=== PATIENT | female | born 1985 | race Caucasian/White ===

== ENCOUNTER 2016-12-16 13:14 | Emergency (ER) | payer MEDICAID ==
[2016-12-16] MEDS ORDERED: Sodium Chloride 0.9% 10 ML Syringe FLUSH PRN (13:54)
[2016-12-16] MEDS ORDERED: Ondansetron 4 MG/2 ML SDV IVPUSH ONE (13:56)
[2016-12-16] MEDS ORDERED: Ketorolac 30 MG/ML SDV IVPUSH ONE (13:56)
[2016-12-16] MEDS ORDERED: diphenhydrAMINE 50 MG/ML SDV IVPUSH ONE (13:57)
[2016-12-16] MEDS ORDERED: Lactated Ringers 1,000 ML IV SCH (14:00)
--- NOTE | 2016-12-16 14:00 | EDM.PDOC ---
ED HPI GENERAL MEDICAL PROBLEM - General Chief Complaint: Chest Pain Stated Complaint: CHEST PAIN Time Seen by Provider: 12/16/16 13:49 Source of Information: Reports: Patient, RN Notes Reviewed History Limitations: Reports: No Limitations - History of Present Illness INITIAL COMMENTS - FREE TEXT/NARRATIVE: 31-year-old female presents emergency department today with complaint of headache and chest pain she was sent over by the clinic urgent care for further evaluation. States had chest pain on and off for the last 2 weeks it is intermittent random last anywhere from 1:55 hours she has had a headache for 2 days photophobia nausea no phonophobia she is not short of breath she does smoke family history with myocardial infarction her father in his 50s Left Shoulder Pain Score (Numeric/FACES): 5 - Related Data Allergies Allergy/AdvReac Type Severity Reaction Status Date / Time Iodinated Contrast- Oral and Allergy Severe Anaphylactic Verified 12/16/16 13:28 IV Dye Shock [Iodinated Contrast Media - IV Dye] shellfish derived Allergy Severe Anaphylactic Verified 12/16/16 13:28 Shock codeine Allergy Rash Verified 12/16/16 13:28 doxycycline Allergy Swelling Verified 12/16/16 13:28 Penicillins Allergy Cannot Verified 12/16/16 13:28 Remember Home Meds: Home Meds Ibuprofen [IMW: Ibuprofen] 800 mg PO .TWICE DAILY W MEALS PRN #30 tab 12/16/16 [ Rx] 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: , Other (See Below) Other OB/BYN History: C SECTIONS X 2 Other Musculoskeletal History: R KNEE REPAIR X 2 Hematologic History: Reports: Other (See Below) Other Hematologic History: Factor V Leiden deficiency - Infectious Disease History Infectious Disease History: Reports: Chicken Pox - History Comment History Comment: recent left breast "infection," biopsy taken a few days ago and antibiotics Social & Family History - Family History HEENT: Reports: None OBGYN: Reports: None Musculoskeletal: Reports: None Hematologic: Reports: Bleeding Disorder - Tobacco Use Smoking Status *Q: Current Every Day Smoker Years of Tobacco use: 16 Packs/Tins Daily: 1 Used Tobacco, but Quit: No Second Hand Smoke Exposure: Yes - Caffeine Use Caffeine Use: Reports: Coffee, Energy Drinks, Soda, Tea Other Caffeine Use: 4-5 cups per day - Alcohol Use Days Per Week of Alcohol Use: 1 Number of Drinks Per Day: 3 Total Drinks Per Week: 3 - Recreational Drug Use Recreational Drug Use: No - Living Situation & Occupation Living situation: Reports: ED ROS GENERAL - Review of Systems Review Of Systems: See Below Constitutional: Reports: No Symptoms HEENT: Reports: No Symptoms Respiratory: Denies: Shortness of Breath, Cough, Sputum Cardiovascular: Reports: Chest Pain GI/Abdominal: Reports: Nausea : Reports: No Symptoms Musculoskeletal: Reports: No Symptoms Neurological: Reports: Headache - Physical Exam Exam: See Below Text/Narrative:: General: Female not in any distress, alert and oriented x3 HEENT: head is atraumatic normocephalic, eyes pupils equal round reactive to light, sclera clear no conjunctivitis appreciated. Ears tympanic membranes clear and aggarwal landmarks and light reflex are present bilaterally canals are clear. Nose no septal deviation, nares are clear, no blood present. Mouth mucosa is moist and pink no erythema or exudate noted in soft palate, tongue is midline uvula is midline, dentition is intact. Neck: Supple no thyromegaly no tracheal deviation. Nodes: Cervical nodes subclavicular nodes nontender no palpable lymphadenopathy noted. Lungs: clear to auscultation bilaterally with symmetrical respirations, no adventitious noise appreciated. CV: Regular rate and rhythm S1 and S2 appreciated no murmurs rubs or gallops noted. Abdomen: Soft, nontender, no palpable masses or organomegaly appreciated, no distention no guarding bowel sounds are present, . Neuro: Cranial nerves II through XII grossly intact Skin: Warm and dry, intact Extremities: No lower extremity edema appreciated. Course - Vital Signs Last Recorded V/S: Last Vital Signs Temp 209.8 F H 12/16/16 13:18 Pulse 60 12/16/16 14:45 Resp 16 12/16/16 14:45 BP 105/73 12/16/16 14:45 Pulse Ox 97 12/16/16 14:45 - Orders/Labs/Meds Orders: Active Orders 24 hr Category Date Time Status Cardiac Monitoring [RC] .As Directed Care 12/16/16 13:55 Active EKG Documentation Completion [RC] ASDIRECTED Care 12/16/16 13:56 Active Peripheral IV Care [RC] . DIRECTED Care 12/16/16 13:55 Active Lactated Ringers [Ringers, Lactated] 1,000 ml Med 12/16/16 14:00 Active IV ASDIRECTED Sodium Chloride 0.9% [Saline Flush] Med 12/16/16 13:54 Active 10 ml FLUSH ASDIRECTED PRN Peripheral IV Insertion Adult [OM.PC] Stat Oth 12/16/16 13:54 Ordered EKG 12 Lead [EK] Stat Ther 12/16/16 13:56 Ordered Medication Orders Lactated Ringer's (Ringers, Lactated) 1,000 mls @ 999 mls/hr IV ASDIRECTED STEVEN Last Admin: 12/16/16 14:08 Dose: 999 mls/hr Sodium Chloride (Saline Flush) 10 ml FLUSH ASDIRECTED PRN PRN Reason: Keep Vein Open Last Admin: 12/16/16 14:15 Dose: 10 ml Labs: Laboratory Tests 12/16/16 12/16/16 Range/Units 14:05 14:05 WBC 8.0 (4.5-11.0) K/uL RBC 5.02 (3.30-5.50) M/uL Hgb 15.7 H D (12.0-15.0) g/dL Hct 45.3 (36.0-48.0) % MCV 90 (80-98) fL MCH 31 (27-31) pg MCHC 35 (32-36) % Plt Count 216 (150-400) K/uL Add Manual Diff Yes Neutrophils % (Manual) 50 (36-66) % Lymphocytes % (Manual) 33 (24-44) % Monocytes % (Manual) 8 H (2-6) % Eosinophils % (Manual) 5 H (2-4) % Sodium 139 L (140-148) mmol/L Potassium 4.3 (3.6-5.2) mmol/L Chloride 105 (100-108) mmol/L Carbon Dioxide 26 (21-32) mmol/L Anion Gap 12.3 (5.0-14.0) mmol/L BUN 8 D (7-18) mg/dL Creatinine 0.8 D (0.6-1.0) mg/dL Est Cr Clr Drug Dosing 97.27 mL/min Estimated GFR (MDRD) > 60 (>60) Glucose 90 (74-106) mg/dL Calcium 8.7 (8.5-10.1) mg/dL Total Bilirubin 0.2 (0.2-1.0) mg/dL AST 14 L (15-37) U/L ALT 23 D (12-78) U/L Alkaline Phosphatase 81 (46-116) U/L Troponin I < 0.017 (0.000-0.056) ng/mL Total Protein 7.5 (6.4-8.2) g/dL Albumin 3.9 (3.4-5.0) g/dL Globulin 3.6 H (2.3-3.5) g/dL Albumin/Globulin Ratio 1.1 L (1.2-2.2) Meds: Medications Generic Name Dose Route Start Last Admin Trade Name Freq PRN Reason Stop Dose Admin Lactated Ringer's 1,000 mls @ 999 mls/hr 12/16/16 14:00 12/16/16 14:08 Ringers, Lactated IV 999 mls/hr ASDIRECTED STEVEN Administration Sodium Chloride 10 ml 12/16/16 13:54 12/16/16 14:15 Saline Flush FLUSH 10 ml ASDIRECTED PRN Administration Keep Vein Open Discontinued Medications Generic Name Dose Route Start Last Admin Trade Name Freq PRN Reason Stop Dose Admin Diphenhydramine HCl 25 mg 12/16/16 13:57 12/16/16 14:14 Benadryl IVPUSH 12/16/16 13:58 25 mg ONETIME ONE Administration Ketorolac Tromethamine 30 mg 12/16/16 13:56 12/16/16 14:11 Toradol IVPUSH 12/16/16 13:57 30 mg ONETIME ONE Administration Ondansetron HCl 4 mg 12/16/16 13:56 12/16/16 14:08 Zofran IVPUSH 12/16/16 13:57 4 mg ONETIME ONE Administration Departure - Departure Time of Disposition: 14:56 Disposition: Home, Self-Care 01 Condition: Good Clinical Impression: Migraine Qualifiers: Migraine type: with aura Status migrainosus presence: without status migrainosus Intractability: not intractable Qualified Code(s): G43.109 - Migraine with aura, not intractable, without status migrainosus - Discharge Information Prescriptions: Ibuprofen [IMW: Ibuprofen] 800 mg PO .TWICE DAILY W MEALS PRN #30 tab PRN Reason: Pain Forms: ED Department Discharge Additional Instructions: Continue to use ibuprofen as needed for pain control, Please followup with your primary care provider in 3-5 days if not better, please call return to the emergency department with worsening of symptoms. - My Orders Last 24 Hours: My Active Orders 12/16/16 13:54 Sodium Chloride 0.9% [Saline Flush] 10 ml FLUSH ASDIRECTED PRN Peripheral IV Insertion Adult [OM.PC] Stat 12/16/16 13:55 Cardiac Monitoring [RC] .As Directed Peripheral IV Care [RC] . DIRECTED 12/16/16 13:56 EKG Documentation Completion [RC] ASDIRECTED EKG 12 Lead [EK] Stat 12/16/16 14:00 Lactated Ringers [Ringers, Lactated] 1,000 ml IV ASDIRECTED - Assessment/Plan Last 24 Hours: My Active Orders 12/16/16 13:54 Sodium Chloride 0.9% [Saline Flush] 10 ml FLUSH ASDIRECTED PRN Peripheral IV Insertion Adult [OM.PC] Stat 12/16/16 13:55 Cardiac Monitoring [RC] .As Directed Peripheral IV Care [RC] . DIRECTED 12/16/16 13:56 EKG Documentation Completion [RC] ASDIRECTED EKG 12 Lead [EK] Stat 12/16/16 14:00 Lactated Ringers [Ringers, Lactated] 1,000 ml IV ASDIRECTED Plan: Assessment Acuity = acute Site and laterality = migraine type headaches Etiology = unclear etiology Manifestations = chest pain now resolved Location of injury = Home Lab values = CBC, CMP, troponin all negative EKG demonstrates a sinus rhythm Plan She had good improvement with combination Toradol, IV fluids, Benadryl and Zofran, prescription written for 800 mg ibuprofen follow-up with primary care 3- 5 days for reevaluation Patient was in agreement with the plan all questions were answered, they were instructed to return to the emergency department or call for worsening symptoms. This note was dictated using [employer] voice recognition software please call with any questions.
[2016-12-16 14:46] VITALS: BP 105/73
== END 2016-12-16 15:20 | disposition home or self-care (01) ==
LOC: JP.ED 13:14
DX: G43.109 Migraine with aura, not intractable, without status migrainosus (principal); F17.210 Nicotine dependence, cigarettes, uncomplicated; Z91.041 Radiographic dye allergy status; Z91.013 Allergy to seafood; Z88.5 Allergy status to narcotic agent; Z88.0 Allergy status to penicillin; Z98.890 Other specified postprocedural states
CPT/HCPCS: 36415; 80053; 84484; 85025; 93005; 96361; 96374; 96375; 99285; J1200; J1885; J2405; J7050; J7120

== ENCOUNTER 2018-01-25 14:28 | Emergency (ER) | payer MEDICAID ==
[2018-01-25 15:09] VITALS: BP 138/89
--- NOTE | 2018-01-25 16:44 | EDM.PDOC ---
ED HPI GENERAL MEDICAL PROBLEM - General Chief Complaint: Lower Extremity Injury/Pain Stated Complaint: SWELLING FROM MID-CALF DOWN/ RECENT KNEE SURGURY Time Seen by Provider: 01/25/18 15:25 Source of Information: Reports: Patient History Limitations: Reports: No Limitations - History of Present Illness INITIAL COMMENTS - FREE TEXT/NARRATIVE: 32-year-old female with recent right knee surgery is developed some increased swelling in her distal leg, calf and foot and discuss this with her orthopedic surgeon and he recommended she come in to the emergency room. She has some increased pain in the calf and some bruising. She is nonweightbearing. She is basically just here to rule out a DVT. She does have factor V deficiency and is already on Lovenox twice daily. Onset: Gradual Associated Symptoms: Reports: No Other Symptoms Right Lower Leg Pain Score (Numeric/FACES): 5 - Related Data Allergies Allergy/AdvReac Type Severity Reaction Status Date / Time Iodinated Contrast- Oral and Allergy Severe Anaphylactic Verified 01/25/18 15:15 IV Dye Shock [Iodinated Contrast Media - IV Dye] shellfish derived Allergy Severe Anaphylactic Verified 01/25/18 15:15 Shock codeine Allergy Rash Verified 01/25/18 15:15 doxycycline Allergy Swelling Verified 01/25/18 15:15 Penicillins Allergy Cannot Verified 01/25/18 15:15 Remember Home Meds: Home Meds Ibuprofen [IMW: Ibuprofen] 800 mg PO .TWICE DAILY W MEALS PRN #30 tab 12/16/16 [ Rx] Enoxaparin [Lovenox] 30 mg SQ BID 01/25/18 [History] Hydrocodone/Acetaminophen [Hydrocodon-Acetaminophn 10-325] 1 tab PO Q4H PRN [History] Past Medical History - Past Health History Medical/Surgical History: Denies Medical/Surgical History Genitourinary History: Reports: Other (See Below) [employer]ESS[employer] 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: Reports: , Other (See Below) Other [employer]ESS[employer]I 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: C SECTIONS X 2 Other Musculoskeletal History: R KNEE REPAIR X 2 Hematologic History: Reports: Other (See Below) Other Hematologic History: Factor V Leiden deficiency - Infectious Disease History Infectious Disease History: Reports: Chicken Pox - Past Surgical History Musculoskeletal Surgical History: Reports: Arthroscopic Knee, Knee Replacement - History Comment History Comment: recent left breast "infection," biopsy taken a few days ago and antibiotics Social & Family History - Family History HEENT: Reports: None OBGYN: Reports: None Musculoskeletal: Reports: None Hematologic: Reports: Bleeding Disorder - Tobacco Use Smoking Status *Q: Current Every Day Smoker Years of Tobacco use: 15 Packs/Tins Daily: 0.8 - Caffeine Use Caffeine Use: Reports: Coffee, Soda Other Caffeine Use: 4-5 cups per day - Recreational Drug Use Recreational Drug Use: No - Living Situation & Occupation Living situation: Reports: Review of Systems - Review of Systems Review Of Systems: See Below Constitutional: Denies: Fever Respiratory: Denies: Shortness of Breath Cardiovascular: Denies: Chest Pain GI/Abdominal: Denies: Abdominal Pain, Nausea, Vomiting Skin: Reports: Bruising (There is bruising present over the right lower extremity especially to the ankle and foot. She has a knee immobilizer on.) ED EXAM, GENERAL - Physical Exam Exam: See Below Exam Limited By: No Limitations General Appearance: Alert, No Apparent Distress Respiratory/Chest: No Respiratory Distress, Lungs Clear Cardiovascular: Regular Rate, Rhythm Extremities: Other (Exam is otherwise limited to the right lower extremity. There is Jacobo wrapping and a knee immobilizer on the right leg.) Course - Vital Signs Last Recorded V/S: Last Vital Signs Temp 99.1 F 01/25/18 15:15 Pulse 103 H 01/25/18 15:15 Resp 17 01/25/18 15:15 BP 138/89 01/25/18 15:15 Pulse Ox 96 01/25/18 15:15 - Orders/Labs/Meds Orders: Active Orders 24 hr Category Date Time Status VL Duplex Lwr Ext Veins Ltd Rt [US] Stat Exams 01/25/18 15:20 Taken - Re-Assessments/Exams Free Text/Narrative Re-Assessment/Exam: 01/25/18 16:53 A right lower extremity ultrasound was done, its negative for DVT. The leg was rewrapped and knee immobilizer replaced, she can continue treating the leg per her instructions of the orthopedic surgeon. Departure - Departure Time of Disposition: 17:05 Disposition: Home, Self-Care 01 Condition: Good Clinical Impression: Leg edema, right - Discharge Information Instructions: Peripheral Edema Referrals: Han Dubose MD [Primary Care Provider] - Forms: ED Department Discharge Care Plan Goals: Elevating leg and keeping it wrapped with external pressure will help swelling. Continue following instructions of your orthopedic surgeon. - My Orders Last 24 Hours: My Active Orders 01/25/18 15:20 VL Duplex Lwr Ext Veins Ltd Rt [US] Stat - Assessment/Plan Last 24 Hours: My Active Orders 01/25/18 15:20 VL Duplex Lwr Ext Veins Ltd Rt [US] Stat
--- NOTE | 2018-01-26 09:03 | US ---
VL Duplex Lwr Ext Veins Ltd Rt INDICATION: leg swelling FINDINGS: Ultrasound examination of the lower extremity using Doppler and compressive technique demon strates that the common femoral, femoral, and popliteal veins are patent, and negative for thrombus. The calf veins were segmentally visualized and are negative where seen. IMPRESSION: Negative for deep venous thrombosis.
== END 2018-01-25 17:05 | disposition home or self-care (01) ==
LOC: JP.ED 14:28
DX: R60.0 Localized edema (principal); F17.210 Nicotine dependence, cigarettes, uncomplicated; D68.2 Hereditary deficiency of other clotting factors; Z88.8 Allergy status to other drugs, medicaments and biological substances; Z91.041 Radiographic dye allergy status; Z88.5 Allergy status to narcotic agent; Z91.013 Allergy to seafood; Z79.01 Long term (current) use of anticoagulants
CPT/HCPCS: 93971-26; 93971-RT; 99284-25

== ENCOUNTER 2020-06-10 11:10 | Emergency (ER) | payer MEDICAID ==
[2020-06-10 11:24] VITALS: BP 120/81; PULSE 84
--- NOTE | 2020-06-10 11:44 | EDM.PDOC ---
ED HPI GENERAL MEDICAL PROBLEM - General Chief Complaint: ENT Problem Stated Complaint: LOWER RIGHT SIDE TOOTH PAIN/INFECTION Time Seen by Provider: 06/10/20 11:30 Source of Information: Reports: Patient History Limitations: Reports: No Limitations - History of Present Illness INITIAL COMMENTS - FREE TEXT/NARRATIVE: 35-year-old female who has a known fractured second molar on the right mandible presents with 1 day of swelling and pain in the right jaw. This happened earlier this year and it responded to clindamycin. A dental appointment was canceled earlier this year when the dentist became ill, that was followed by her kids getting Covid and she had to go under quarantine and treatment has been prolonged. She does have an appointment for 2 weeks. No fevers or chills Onset: Gradual Duration: Day(s): (2 days of increased pain and swelling) Location: Reports: Other (Right mandibular molars) Associated Symptoms: Denies: Chest Pain, Fever/Chills, Nausea/Vomiting - Related Data Allergies Allergy/AdvReac Type Severity Reaction Status Date / Time Iodinated Contrast Media Allergy Severe Anaphylactic Verified 06/10/20 11:26 [Iodinated Contrast Media - Shock IV Dye] shellfish derived Allergy Severe Anaphylactic Verified 06/10/20 11:26 Shock codeine Allergy Rash Verified 06/10/20 11:26 doxycycline Allergy Swelling Verified 06/10/20 11:26 Penicillins Allergy Cannot Verified 06/10/20 11:26 Remember Home Meds: Home Meds Citalopram [Citalopram HBr] 1 tab PO DAILY 06/10/20 [History] Past Medical History - Past Health History Medical/Surgical History: Denies Medical/Surgical History Genitourinary History: Reports: Other (See Below) DIRECTOR [employer]UTIONS History: Reports: , Other (See Below) Other DIRECTOR [employer] SOLUTIONS History: C SECTIONS X 2 Other Musculoskeletal History: R KNEE REPAIR X 2 Hematologic History: Reports: Other (See Below) Other Hematologic History: Factor V Leiden deficiency - Infectious Disease History Infectious Disease History: Reports: Chicken Pox - Past Surgical History Musculoskeletal Surgical History: Reports: Arthroscopic Knee, Knee Replacement - History Comment History Comment: recent left breast "infection," biopsy taken a few days ago and antibiotics Social & Family History - Family History HEENT: Reports: None OBGYN: Reports: None Musculoskeletal: Reports: None Hematologic: Reports: Bleeding Disorder - Tobacco Use Tobacco Use Status *Q: Current Every Day Tobacco User Years of Tobacco use: 20 Packs/Tins Daily: 1 - Caffeine Use Caffeine Use: Reports: Coffee, Soda Other Caffeine Use: 4-5 cups per day - Living Situation & Occupation Living situation: Reports: ED ROS ENT - Review of Systems Review Of Systems: See Below Constitutional: Denies: Fever, Chills HEENT: Reports: Dental Pain, Other (Right facial swelling, especially over the right mandible) Respiratory: Denies: Shortness of Breath GI/Abdominal: Reports: No Symptoms Skin: Denies: Erythema (No erythema over the swollen area) Neurological: Denies: Headache ED EXAM, ENT - Physical Exam Exam: See Below Exam Limited By: No Limitations General Appearance: Alert, No Apparent Distress Mouth/Throat: Other (Significant swelling is present over the right mandible which is tender to palpation. The gingiva around the second molar looks inflamed) Neck: No: Lymphadenopathy (R), Lymphadenopathy (L) Respiratory/Chest: No Respiratory Distress, Lungs Clear Neurological: Alert, Oriented Psychiatric: Normal Affect, Normal Mood Skin: Warm, Dry. No: Erythema Course - Vital Signs Last Recorded V/S: Last Vital Signs Temp 98.6 F 06/10/20 11:34 Pulse 84 06/10/20 11:34 Resp 16 06/10/20 11:34 BP 120/81 06/10/20 11:34 Pulse Ox 99 06/10/20 11:34 - Re-Assessments/Exams Free Text/Narrative Re-Assessment/Exam: 06/10/20 11:43 Patient has a likely dental abscess forming under the second molar of the mandible on the right side. She was again placed on clindamycin 300 mg 3 times a day for at least 5 days, and given 10 Percocet for extra pain control. She is going to call the dentist tomorrow to see if she can get her appointment moved closer, she will return to the emergency room if worsening despite treatment. Continue with anti-inflammatories. Departure - Departure Time of Disposition: 12:09 Disposition: Home, Self-Care 01 Clinical Impression: Abscess, dental - Discharge Information Instructions: Dental Abscess, [id number] Referrals: Han Dubose MD [Primary Care Provider] - Forms: ED Department Discharge Care Plan Goals: Take antibiotic 3 times a day as directed, continue with ibuprofen and add stronger pain medication if needed. Call the dentist tomorrow to see if you can move up your appointment. Sepsis Event Note (ED) - Evaluation Sepsis Screening Result: No Definite Risk - Focused Exam Vital Signs: Vital Signs Temp Pulse Resp BP Pulse Ox 06/10/20 11:34 98.6 F 84 16 120/81 99 06/10/20 11:22 98.6 F 84 16 120/81 99
== END 2020-06-10 12:09 | disposition home or self-care (01) ==
LOC: JP.ED 11:10
DX: K04.7 Periapical abscess without sinus (principal); F17.210 Nicotine dependence, cigarettes, uncomplicated; Z91.041 Radiographic dye allergy status; Z91.013 Allergy to seafood; Z88.5 Allergy status to narcotic agent; Z88.0 Allergy status to penicillin; Z88.1 Allergy status to other antibiotic agents
CPT/HCPCS: 99282; 99283